=== PATIENT | female | born 1950 | race Caucasian/White ===

== ENCOUNTER 2020-02-06 | Emergency (ER) | payer MEDICARE ==
[~2020-02-06] MED LIST: BABY ASPIRIN81 MG OR; BENICAR HCT1 TA2 PO; CLOBETASOL0.051 EX; DIOVAN HC2 OR; LEXAPRO20 MG PO; LORTAB 5 OR; MELOXICAM15 MG PO; MELOXICAM7.5 MG OR; TOPROL XL50 MG PO; VITAMIN D2000 UNIT PO
[2020-02-06 13:42] LABS: HEMATOCRIT 48.6 % (37.0-47.0); IMMATURE GRANULOCYTES 1.7 % (0.0-5.0); MEAN CORPUSCULAR HGB CONC 32.9 g/dL CAL (32.0-36.0); NEUT# 5.36 thou/uL (2.00-7.15); RED BLOOD COUNT 5.34 mill/uL (4.20-5.60); RED CELL DISTRI WIDTH 13.6 % (11.5-15.5)
[2020-02-06 13:50] LABS: ALBUMIN 3.4 g/dL (3.2-5.0); ALKALINE PHOSPHATASE 106 u/l (38-126); BUN 26 mg/dL (8-23); BUN/CREATININE RATIO 33 (12-20 (CALC)); CHLORIDE 98 mmol/l (95-108); CREATININE 0.8 mg/dL (0.5-1.0); GFR > 60 ML/MIN (>=60 (CALC)); GFR FOR AFR.AMER. > 60 ML/MIN (>=60 (CALC)); POTASSIUM 3.3 mmol/l (3.5-5.1); SODIUM 136 mmol/l (137-146); TOTAL PROTEIN 7.1 g/dL (6.3-8.2)
[2020-02-06 13:52] LABS: ANION GAP 8 (6-22 (CALC)); BILIRUBIN, TOTAL 0.8 mg/dL (0.0-1.4); CARBON DIOXIDE 33 mmol/l (22-30); SGOT/AST 139 u/l (9-36)
[2020-02-06 14:13] LABS: MYOGLOBIN 39 ng/mL (0 - 62)
[2020-02-06 14:26] LABS: URINE BILIRUBIN - DIPSTICK NEGATIVE (NEGATIVE); URINE BLOOD DIPSTICK NEGATIVE (NEGATIVE); URINE COLOR YELLOW; URINE GLUCOSE - DIPSTICK NEGATIVE (NEGATIVE); URINE KETONE NEGATIVE (NEGATIVE); URINE LEUK ESTERASE NEGATIVE (NEGATIVE); URINE NITRITE - DIPSTICK NEGATIVE (Negative); URINE PH 6.5 (4.5-8.0); URINE PROTEIN - DIPSTICK 30 mg/dL (NEG-TRACE); URINE SPECIFIC GRAVITY 1.015; URINE UROBILINOGEN - DIPSTICK 0.2 E.U./dL (0.2)
[2020-02-06 14:41] LABS: URINE RBC 0-2 RBC/hpf (0-5); URINE SQUAMOUS EPITHELIAL CELL FEW EPI/hpf (0-FEW)
[2020-02-06 14:42] LABS: URINE BACTERIA FEW hpf; URINE MUCUS FEW hpf (NONE-FEW)
[2020-02-06] MEDS ORDERED: CEPHALEXIN500 M1 PO (14:56)
== END 2020-02-06 15:40 | disposition home or self-care (01) ==
PROVIDERS: Emergency Medicine
DX: E87.6 Hypokalemia (principal); R74.8 Abnormal levels of other serum enzymes; N39.0 Urinary tract infection, site not specified; I10 Essential (primary) hypertension

== ENCOUNTER 2020-03-12 15:33 | Emergency (ER) | payer MEDICARE ==
[~2020-03-12 15:33] MED LIST changes: +CEPHALEXIN500 M1 PO
[2020-03-12 16:27] LABS: MEAN CORPUSCULAR HGB 29.3 pG CALC (26.0-32.0); MEAN CORPUSCULAR HGB CONC 31.5 g/dL CAL (32.0-36.0); NEUT# 4.1 thou/uL (2.00-7.15); RED BLOOD COUNT 3.86 mill/uL (4.20-5.60); RED CELL DISTRI WIDTH 16.2 % (11.5-15.5)
[2020-03-12] MEDS ORDERED: FOLIC ACID1 MG PO (16:30)
[2020-03-12] MEDS ORDERED: ASPIRIN 81 LOW81 MG PO (16:30)
[2020-03-12] MEDS ORDERED: PROTONIX40 M4 PO (16:31)
[2020-03-12 16:33] LABS: HEMATOCRIT 35.9 % (37.0-47.0); HEMOGLOBIN 11.3 g/dl (12.0-16.0); IMMATURE GRANULOCYTES 7.3 % (0.0-5.0)
[2020-03-12 16:43] LABS: PROTHROMBIN TIME 10.7 SECONDS (9.0-12.5)
[2020-03-12] MEDS ORDERED: PANTOPRAZOLE SO40 M1 PO (16:54)
[2020-03-12] MEDS ORDERED: METHOTREXATE2.5 MG PO (16:55)
[2020-03-12] MEDS ORDERED: AMLODIPINE BESY10 MG PO (16:57)
[2020-03-12] MEDS ORDERED: ADLT ASA LOW81 MG PO (16:57)
[2020-03-12] MEDS ORDERED: VITAMIN D32000 UNI2 PO (16:58)
[2020-03-12 17:17] LABS: ALKALINE PHOSPHATASE 90 u/l (38-126); BILIRUBIN, TOTAL 0.7 mg/dL (0.0-1.4); BUN 18 mg/dL (8-23); BUN/CREATININE RATIO 26 (12-20 (CALC)); CHLORIDE 103 mmol/l (95-108); CREATININE 0.7 mg/dL (0.5-1.0); GFR > 60 ML/MIN (>=60 (CALC)); GFR FOR AFR.AMER. > 60 ML/MIN (>=60 (CALC)); POTASSIUM 3.8 mmol/l (3.5-5.1); SGOT/AST 120 u/l (9-36); SODIUM 133 mmol/l (137-146); TOTAL PROTEIN 6.3 g/dL (6.3-8.2)
[2020-03-12 17:19] LABS: ALBUMIN 2.7 g/dL (3.2-5.0); ANION GAP 8 (6-22 (CALC)); CARBON DIOXIDE 26 mmol/l (22-30)
[2020-03-12 18:18] VITALS: BP 98/56
== END 2020-03-12 18:15 | disposition home or self-care (01) ==
LOC: ED 15:33
PROVIDERS: Family Medicine
PROC: 2Y41X5Z Packing of Nasal Region using Packing Material (ICD-10-PCS; principal; 2020-03-12)
DX: R04.0 Epistaxis (principal); I10 Essential (primary) hypertension; Z79.82 Long term (current) use of aspirin

== ENCOUNTER 2020-03-13 01:47 | Emergency (ER) | payer MEDICARE ==
[~2020-03-13 01:47] MED LIST changes: +ADLT ASA LOW81 MG PO; +AMLODIPINE BESY10 MG PO; +ASPIRIN 81 LOW81 MG PO; +FOLIC ACID1 MG PO; +METHOTREXATE2.5 MG PO; +PANTOPRAZOLE SO40 M1 PO; +PROTONIX40 M4 PO; +VITAMIN D32000 UNI2 PO
[2020-03-13 02:51] LABS: HEMOGLOBIN 11.1 g/dl (12.0-16.0); MEAN CELL VOLUME 92.6 fL CALC (80.0-100.0); MEAN CORPUSCULAR HGB 30.2 pG CALC (26.0-32.0); MEAN CORPUSCULAR HGB CONC 32.6 g/dL CAL (32.0-36.0); NEUT# 3.94 thou/uL (2.00-7.15); RED BLOOD COUNT 3.67 mill/uL (4.20-5.60); RED CELL DISTRI WIDTH 16.5 % (11.5-15.5)
[2020-03-13 02:52] LABS: IMMATURE GRANULOCYTES 7.3 % (0.0-5.0)
[2020-03-13 03:02] LABS: ALBUMIN 2.7 g/dL (3.2-5.0); ALKALINE PHOSPHATASE 90 u/l (38-126); ANION GAP 9 (6-22 (CALC)); BILIRUBIN, TOTAL 0.8 mg/dL (0.0-1.4); BUN 19 mg/dL (8-23); BUN/CREATININE RATIO 29 (12-20 (CALC)); CARBON DIOXIDE 26 mmol/l (22-30); CHLORIDE 102 mmol/l (95-108); CREATININE 0.7 mg/dL (0.5-1.0); GFR > 60 ML/MIN (>=60 (CALC)); GFR FOR AFR.AMER. > 60 ML/MIN (>=60 (CALC)); POTASSIUM 3.7 mmol/l (3.5-5.1); SGOT/AST 118 u/l (9-36); SODIUM 133 mmol/l (137-146); TOTAL PROTEIN 6.2 g/dL (6.3-8.2)
[2020-03-13 03:03] LABS: PROTHROMBIN TIME 10.8 SECONDS (9.0-12.5)
[2020-03-13 03:31] LABS: MYOGLOBIN 128 ng/mL (0 - 62)
[2020-03-13 04:00] VITALS: BP 108/62
== END 2020-03-13 04:17 | disposition short-term general hospital (02) ==
LOC: ED 01:47
PROVIDERS: Emergency Medicine
DX: K92.2 Gastrointestinal hemorrhage, unspecified (principal); I95.9 Hypotension, unspecified; D50.0 Iron deficiency anemia secondary to blood loss (chronic); F41.0 Panic disorder [episodic paroxysmal anxiety]; I10 Essential (primary) hypertension
CPT/HCPCS: S0164

== ENCOUNTER 2020-04-11 15:15 | Inpatient (IN) | payer MEDICARE ==
[~2020-04-11] VITALS: Ht 160 cm; Wt 105.8 kg
--- NOTE | 2020-04-11 15:15 | NUR ---
PT TO ROOM VIA EMS
--- NOTE | 2020-04-11 15:52 | NUR ---
PT SENT TO ER BY [facility], FOR AMS AND LOW 02 SAT. PT IS AOX1 UPON ARRIVAL. PT WAS RELEASED FROM [facility] WITH A DIAGNOSIS OF PNEUMONIA AND SEPSIS. PT HAS PICC LINE IN UPPER RIGHT ARM THAT FLUSHED AND GAVE BLOOD. PT WILL ANSWER QUESTIONS ABOUT SELF WITH MOTIVATION. PT FOLLOWS BASIC COMMANDS. PT DENIES ANY C/P, SOB N/V. PT ON HOME 02 AT 3 LPM
[2020-04-11 16:02] LABS: HEMOGLOBIN 11.5 g/dl (12.0-16.0); IMMATURE GRANULOCYTES 3.5 % (0.0-5.0); MEAN CELL VOLUME 93.3 fL CALC (80.0-100.0); MEAN CORPUSCULAR HGB 29.8 pG CALC (26.0-32.0); MEAN CORPUSCULAR HGB CONC 31.9 g/dL CAL (32.0-36.0); NEUT# 6.03 thou/uL (2.00-7.15); RED BLOOD COUNT 3.86 mill/uL (4.20-5.60); RED CELL DISTRI WIDTH 18.9 % (11.5-15.5)
[2020-04-11 16:05] LABS: ANION GAP 7 (6-22 (CALC)); BILIRUBIN, TOTAL 0.6 mg/dL (0.0-1.4); BUN 12 mg/dL (8-23); BUN/CREATININE RATIO 18 (12-20 (CALC)); CARBON DIOXIDE 25 mmol/l (22-30); CHLORIDE 109 mmol/l (95-108); CREATININE 0.7 mg/dL (0.5-1.0); GFR > 60 ML/MIN (>=60 (CALC)); GFR FOR AFR.AMER. > 60 ML/MIN (>=60 (CALC)); POTASSIUM 4.2 mmol/l (3.5-5.1); SGOT/AST 105 u/l (9-36); SODIUM 137 mmol/l (137-146); TOTAL PROTEIN 5.8 g/dL (6.3-8.2)
[2020-04-11 16:16] LABS: ALBUMIN 1.9 g/dL (3.2-5.0); ALKALINE PHOSPHATASE 149 u/l (38-126)
[2020-04-11] MEDS ORDERED: ELIQUIS5 MG PO (16:16)
[2020-04-11 16:18] LABS: MYOGLOBIN 63 ng/mL (0 - 62)
[2020-04-11] MEDS ORDERED: MIRTAZAPINE15 MG PO (16:20)
[2020-04-11] MEDS ORDERED: ROCALTROL0.5 MC1 PO (16:20)
[2020-04-11] MEDS ORDERED: MIDODRINE HYDR2.5 MG (16:20)
[2020-04-11] MEDS ORDERED: SOTALOL HCL80 MG PO (16:21)
[2020-04-11] MEDS ORDERED: KLOR-CON M2020 MEQ PO (16:21)
[2020-04-11] MEDS ORDERED: SERTRALINE25 MG PO (16:21)
--- NOTE | 2020-04-11 16:22 | NUR ---
SPOKE WITH SHAWNA FROM HOME HEALTH. STATES THAT THIS MORNING THE FAMILY STATED THAT THEY COULD NOT TAKE CARE OF THE PT. SHAWNA WAS ATTEMPTING TO GET PLACEMENT AT [facility]. UPON ARRIVAL OF HOME HEALTH NURSES, NURSES FOUND PT IN POOR HEALTH CONDITIONS AND CALLED 911.
--- NOTE | 2020-04-11 17:16 | NUR ---
ROD INSERTED, PT RESTING ON STRETCHER, FAMILY AT BEDSIDE.
[2020-04-11 17:41] LABS: URINE BILIRUBIN - DIPSTICK NEGATIVE (NEGATIVE); URINE BLOOD DIPSTICK TRACE-LYSED (NEGATIVE); URINE COLOR YELLOW; URINE GLUCOSE - DIPSTICK NEGATIVE (NEGATIVE); URINE KETONE 15 mg/dL (NEGATIVE); URINE LEUK ESTERASE NEGATIVE (NEGATIVE); URINE NITRITE - DIPSTICK NEGATIVE (Negative); URINE PROTEIN - DIPSTICK 30 mg/dL (NEG-TRACE); URINE SPECIFIC GRAVITY 1.025; URINE SQUAMOUS EPITHELIAL CELL FEW EPI/hpf (0-FEW); URINE UROBILINOGEN - DIPSTICK 0.2 E.U./dL (0.2)
--- NOTE | 2020-04-11 18:16 | NUR ---
PT RESTING ON STRETCHER, NO CHANGES IN MENTAL STATUS
--- NOTE | 2020-04-11 19:35 | NUR ---
[facility] CALLED FOR REPORT, AMERICA PEREZ ACCEPTED PT
--- NOTE | 2020-04-11 19:49 | NUR ---
Admission Note Report Given to: AMERICA PEREZ Transported by: Wheelchair X Stretcher Transported with: X Nurse Transporter X Patent IV X O2 Award Machine Operator Location: ICU X [facility] TRANSPORTED WITHOUT ISSUE
--- NOTE | 2020-04-11 19:49 | NUR ---
PT ARRIVED TO FLOOR VIA STRETCHER. PT ALERT TO SELF. HESITANT TO ANSWER ANY QUESTIONS. NO APPARENT RESPIRATORY DISTRESS NOTED PT ON 3L/M VIA NC. ROD PATENT DRAINING DARK YELLOW OUTPUT. WOUNDS NOTED TO RIGHT INNER THIGH, RIGHT BUTTOCK, RIGHT SHOULDER AND RIGHT OUTER THIGH WITH SLOUGH NOTED IN ALL WOUNDS. WOUND IMAGES DOCUMENTED. ORIENTED PT TO ROOM AND CALL LIGHT SYSTEM. BED ALARM PLACED FOR SAFETY. PT PLACED IN ISOLATION DUE TO RECENT DISCHARGE FROM [facility], DRY COUGH AND LOW GRADE TEMP. MIDLINE TO CHAPIN, PRESENT UPON ADMISSION, DRESSING CDI. CALL LIGHT WITHIN REACH. WILL CONTINUE TO MONITOR.
[2020-04-11 19:50] VITALS: BP 107/76
--- NOTE | 2020-04-11 22:03 | NUR ---
PT MORE ALERT. REMAINS ORIENTED TO SELF. CERTIFIED NURSE AIDE ORIENTED TO PLACE AND TIME. MEDICATED ORDERED. PT TOOK PO MEDS WITH SMALL SIP OF WATER, TOLERATED WELL. PT DENIES ANY PAIN OR DISCOMFORT. CALL LIGHT WITHIN REACH. WILL CONTINUE TO MONITOR.
[2020-04-11 23:45] VITALS: BP 106/64
[2020-04-12] VITALS (8 sets, daily range): BP systolic 97–145; BP diastolic 43–83
--- NOTE | 2020-04-12 02:45 | NUR ---
PT RESTING IN BED. NO APPARENT DISTRESS NOTED. CALL LIGHT WITHIN REACH. WILL CONTINUE TO MONITOR.
--- NOTE | 2020-04-12 06:22 | NUR ---
PT RESTING IN BED. NO APPARENT DISTRESS NOTED. CALL LIGHT WITHIN REACH. WILL CONTINUE TO MONITOR.
--- NOTE | 2020-04-12 09:00 | NUR ---
PT SEEN RESTING IN THE BED, DID NOT ANSWER INITIALLY, BUT NOW IS INTERACTIVE. PT WITH FLAT AFFECT. LUNGS CLEAR BUT DECREASED THROUGHOUT, RA. ROD CATHETER IN PLACE. DAUGHTER MARYBETH UPDATED WHEN SHE CALLED.
--- NOTE | 2020-04-12 13:00 | NUR ---
PT SEEN BY DR PELAEZ TODAY, WAS ABLE TO ANSWER SIMPLE QUESTIONS APPROPRIATELY. PT DID SAY THAT SHE WANTED TO EAT, WHICH WAS ENCOURAGING.
[2020-04-12 13:43] LABS: ALBUMIN 1.9 g/dL (3.2-5.0); ALKALINE PHOSPHATASE 151 u/l (38-126); ANION GAP 4 (6-22 (CALC)); BILIRUBIN, TOTAL 0.5 mg/dL (0.0-1.4); BUN 14 mg/dL (8-23); BUN/CREATININE RATIO 18 (12-20 (CALC)); CARBON DIOXIDE 30 mmol/l (22-30); CHLORIDE 109 mmol/l (95-108); CREATININE 0.7 mg/dL (0.5-1.0); GFR > 60 ML/MIN (>=60 (CALC)); GFR FOR AFR.AMER. > 60 ML/MIN (>=60 (CALC)); SGOT/AST 109 u/l (9-36); SODIUM 139 mmol/l (137-146); TOTAL PROTEIN 5.7 g/dL (6.3-8.2)
--- NOTE | 2020-04-12 16:13 | NUR ---
DAUGHTER MARYBETH CONNER IS AT [phone].
--- NOTE | 2020-04-12 16:53 | NUR ---
PT REMAINS BEFORE, NO CHANGE IS STATUS SHE IS SEEN RESTING IN THE BED.
--- NOTE | 2020-04-12 21:35 | NUR ---
MD WAS NOTIFIEDN REGARDING PT HAVING V-TACH, PVC'S AND SOME ATRIGOMY OM TELEMETRY. RESIDENT IS IN BED WITH EYES OPEN. NON PRODUCTIVE COUGH NOTED. O2 SAT RUNNING 91%. HEART RATE IRREGULAR FLUCTUATING BETWEEN 90-104. MD STATES TO GIVE PRESCRIBED MEDICATIONS AND MONITOR RESIDENT HE IS AWARE OF RECENT LAB RESULTS. MEDICATIONS GIVEN AND WILL CONTINUE TO OBSERVE.
--- NOTE | 2020-04-12 23:40 | NUR ---
PATIENT ARRIVES VIA BED TO ICU BED 6. PT AWAKE, ORIENTED TO HER NAME AND ONLY. NO SOB NOTED, SATS 99-100% ON 4 L/MIN NC. LUNG SOUNDS CLEAR ANTERIOR AND POSTERIOR, HR RATE 70'S-80'S, OCCASSIONAL PVC'S, SR. BP WNL. PEDAL AND RADIAL PULSES STRONG. PT DOES FOLLOW COMMANDS. ROD CATHETER INTACT, URINE IS MATTHEW. ESCALATOR OPERATOR DOES REPORT PT HAS ONLY OUTPUT OF URINE IN THE BAG WHICH IS ABOUT 200 ML. PT DOES HAVE SCATTERED ABRASIONS, EXCORIATION THROUGH OUT BODY AND AN ULCER ON HER LEFT BUTTOCK, PICTURES IN CHART ALREADY. NO COUGH NOTED. CHAPIN MIDLINE INTACT, SALINE LOCKED. PT'S NURSE IN MED SURG RECEIVED ORDERS FROM DR DIETRICH AND FAXED TO PHARMACY. CALL LIGHT WITHIN REACH.
--- NOTE | 2020-04-12 23:47 | NUR ---
PT CONTINUES ON TELEMETRY AND HEART RATE DROPPING TO 28 AND 32 BPM AND JUMPING UP TO 70'S. PT O2 SATS FLUCTUATING IN THE 70-90'S. MD WAS NOTIFIED AND ORDER TO TRANSFER PT UP TO ICU FOR FURTHUR MONITORING. PT IS SOMEWHAT RESTLESS AT TIMES. WAS CALLED AND MADE AWARE OF TRANSFER TO ICU. ORDER NOTED FOR CALCIUM GLUCONATE 2GM X 1 DOSE. PT WAS TRANSFERRED VIA STRETCHER.
--- NOTE | 2020-04-12 23:52 | NUR ---
PATIENT'S HUSBNAD LAI AGEE CALLED HERE FOR UPDATES, HE WAS ABLE TO GIVE PASSCODE. UPDATES WERE PROVIDED.
[2020-04-13] VITALS (16 sets, daily range): BP systolic 91–193; BP diastolic 55–86
--- NOTE | 2020-04-13 04:21 | NUR ---
PT WAS REPOSITIONED, AGREED TO DRINK SOME WATER,ASSISTED BY HOLDING THE CUP, PT IS CONFUSED. REORIENTED.AFEBRILE.
[2020-04-13 05:56] LABS: HEMATOCRIT 37.4 % (37.0-47.0); HEMOGLOBIN 11.7 g/dl (12.0-16.0); IMMATURE GRANULOCYTES 2.8 % (0.0-5.0); MEAN CELL VOLUME 95.2 fL CALC (80.0-100.0); MEAN CORPUSCULAR HGB 29.8 pG CALC (26.0-32.0); MEAN CORPUSCULAR HGB CONC 31.3 g/dL CAL (32.0-36.0); NEUT# 5.82 thou/uL (2.00-7.15); RED BLOOD COUNT 3.93 mill/uL (4.20-5.60); RED CELL DISTRI WIDTH 19.4 % (11.5-15.5)
[2020-04-13 06:03] LABS: ALBUMIN 1.9 g/dL (3.2-5.0); ALKALINE PHOSPHATASE 170 u/l (38-126); ANION GAP 6 (6-22 (CALC)); BILIRUBIN, TOTAL 0.6 mg/dL (0.0-1.4); BUN 18 mg/dL (8-23); BUN/CREATININE RATIO 20 (12-20 (CALC)); CARBON DIOXIDE 29 mmol/l (22-30); CHLORIDE 109 mmol/l (95-108); CREATININE 0.9 mg/dL (0.5-1.0); GFR > 60 ML/MIN (>=60 (CALC)); GFR FOR AFR.AMER. > 60 ML/MIN (>=60 (CALC)); INTERNATIONAL NORMALIZED RATIO 2.4 RATIO (0.7-1.3); POTASSIUM 4.2 mmol/l (3.5-5.1); PROTHROMBIN TIME 24.1 SECONDS (9.0-12.5); SGOT/AST 118 u/l (9-36); SODIUM 140 mmol/l (137-146); TOTAL PROTEIN 5.7 g/dL (6.3-8.2)
[2020-04-13 07:24] LABS: TSH, 3RD GENERATION 6.42 uIU/mL (0.47 - 4.68)
--- NOTE | 2020-04-13 08:00 | NUR ---
PT SITTING UP IN BED. STAFF ASSISTING TO FEED PT BREAKFAST. PT ATE MINIMAL. WHEN ASKED PTS NAME, PT RESPONDS "I DONT KNOW". PT IS ALERT BUT CONFUSED. EYES OPENED. NSR AT 74 ON MONITOR. WILL CONTINUE TO MONITOR.
--- NOTE | 2020-04-13 10:02 | NUR ---
DR DIETRICH @BEDSIDE W/PT & DAUGHTER. DAUGHTER REQUEST TPN, DECIDED TO CHANGE PT TO REGULAR DIET TO ENCOURAGE APPETITE.
--- NOTE | 2020-04-13 11:17 | NUR ---
DAUGHTER @NURSING STATION SCARED THAT SHE IS NOT BEING AGGRESSIVE ENOUGH AN ADVOCATE FOR HER MOM. DAUGHTER THINKS MOM WILL STARVE TO IF WE DONT INTERVENE. DAUGHTER ASSURED WE HEAR HER BUT WE NEED TO GO STEP BY STEP, STARTING WITH LUNCH. AWARE.
--- NOTE | 2020-04-13 14:36 | NUR ---
PT BATHED AFTER LARGE BROWN SOFT/PASTY BM THAT WENT UP HER BACK AND DOWN TO HER KNEES. LINENS & GOWN CHANGED. MULTIPLE WOUNDS PHOTOGRAPHED (LEFT SHOULDER, POSTERIOR BILATERAL KNEES, LEFT & RIGHT LATERAL UPPER THIGHS, AND RIGHT UPPER MEDIAL THIGH). WOUNDS CLEANED & BANDAGED.
--- NOTE | 2020-04-13 17:09 | NUR ---
DAUGHTER RETURNS TO ROOM TO ASSIST FEED PT FOR DINNER. DAUGHTER HAPPY PT DRANK WHOLE ENSURE CLEAR FOR LUNCH; BROUGHT IN FOOD FROM OUTSIDE. DAUGHTER ACKNOWLEDGES [facility] IS DOING EVERYTHING THEY CAN FOR PT. DAUGHTER APPRECIATIVE OF CARE & HAPPY WHEN INFORMED OF PTS BM.
--- NOTE | 2020-04-13 18:36 | NUR ---
DAUGHTER STILL CONCERNED ABOUT PTS LOSS OF APPETITE; SHE ONLY GOT HER TO DRINK DINNER, PT DID NOT DRINK.
--- NOTE | 2020-04-13 19:20 | NUR ---
PATIENT LAYS WITH HOB NEAR 30 DEGREES. PT IS DROWSY, DOES NOT FOLLOW COMMANDS THOROUGHLY, GUARDS HERSELF WHEN ATTEMPTING TO PERFORM NURSING CARE. NURSING ASSESSMENT PERFORMED. AFEBRILE, BP WNL, SATS GREATER THAN 95% ON 2 L/MIN., NO SOB NOTED. ROD CATHETER INTACT, DRAINS TEA COLORED URINE. CHAPIN MIDLINE INTACT, FLUSHES PROPERLY, RETURNS BLOOD. COTTON TIPPER COUGH NOTED. CALL LIGHT WITHIN REACH.
--- NOTE | 2020-04-13 21:30 | NUR ---
pt repositioned, washed up due to large incontinent bm, loose. pt guarded. states, "why don't you leave me alone." all linens changed. pillow placed on right side. hob greater than 30 degrees. attempted to give her ensure or ornage juice that her daughter brouth her today, pt refuses at this time. will not swallow her meds for tonight, shakes her head from side to side, states, "no." will attempt when she calms down.
--- NOTE | 2020-04-13 22:45 | NUR ---
WALKED INTO ROOM, 2 STAFF NURSES ASSISTED PT WITH AN INCONTINENT BM, WASHER HER PERIAREA. PT NOW LAYS WITH HOB NEAR 30 DEGREES. CALL LIGHT WITHIN REACH.
[2020-04-14] VITALS (11 sets, daily range): BP systolic 80–132; BP diastolic 45–76
--- NOTE | 2020-04-14 00:25 | NUR ---
ATTEMPTED TO GIVE PATIENT SOME ICED WATER, PT REFUSES, AND SHAKES HER HEAD. REFUSES ALL MEDS.
--- NOTE | 2020-04-14 01:34 | NUR ---
PT SCOOTS DOWN ON THE BED, PT REPOSITIONED, WHEN ASKED IF SHE IS COLD SHE ANSWERS, "YES." BLANKET PROVIDED. CALL LIGHT WITHIN REACH.
[2020-04-14 05:41] LABS: ALBUMIN 1.9 g/dL (3.2-5.0); BILIRUBIN, TOTAL 0.5 mg/dL (0.0-1.4); CREATININE 1.1 mg/dL (0.5-1.0); POTASSIUM 3.7 mmol/l (3.5-5.1); TOTAL PROTEIN 5.7 g/dL (6.3-8.2)
[2020-04-14 05:42] LABS: HEMATOCRIT 36.1 % (37.0-47.0); HEMOGLOBIN 11.5 g/dl (12.0-16.0); IMMATURE GRANULOCYTES 3.8 % (0.0-5.0); MEAN CELL VOLUME 92.6 fL CALC (80.0-100.0); MEAN CORPUSCULAR HGB 29.5 pG CALC (26.0-32.0); MEAN CORPUSCULAR HGB CONC 31.9 g/dL CAL (32.0-36.0); NEUT# 4.75 thou/uL (2.00-7.15); RED BLOOD COUNT 3.9 mill/uL (4.20-5.60); RED CELL DISTRI WIDTH 19.5 % (11.5-15.5)
--- NOTE | 2020-04-14 05:51 | NUR ---
PT WAS REPOSITIONED. NO INCONTINENCE OF BM NOTED AT THIS TIME. PT ENCOURAGED TO DRINK WATER, REFUSES.
--- NOTE | 2020-04-14 06:11 | NUR ---
CALLED AND SPOKE TO DR DIETRICH TO NOTIFY OF 150 ML OUTPUT OF URINE FROM HER ROD CATHETER TONIGHT, ALSO NOTIFIED HIM OF PATIENT REFUSING TO DRINK FLUIDS. NEW ORDERS RECEIVED AND FAXED TO PHARMACY .
--- NOTE | 2020-04-14 06:55 | NUR ---
REPORT RECEIVED FROM NATALIE PARNELL. CARE ASSUMED.
--- NOTE | 2020-04-14 07:00 | NUR ---
PT RESTING IN BED WITH EYES CLOSED. AROUSES TO TOUCH. WHEN ASKED NAME PT STATES JUST LET ME GO. PT REFUSED TO STATE NAME, , LOCATION, OR YEAR. UNABLE TO ASSESS ORIENTATION. SHIFT ASSESSMENT COMPLETED AT THIS TIME. PT REPOSITIONED IN BED. CALL LIGHT IN REACH. WILL CONTINUE TO MONITOR.
--- NOTE | 2020-04-14 07:40 | NUR ---
PT SET UP FOR AM MEAL. PT REFUSING TO EAT. DAUGHTER AT BEDSIDE/ DAUGHTER MADE AWARE.
--- NOTE | 2020-04-14 08:15 | NUR ---
DR PELAEZ AT BEDSIDE AT THIS TIME
--- NOTE | 2020-04-14 09:00 | NUR ---
PT ASSISTED UP TO CHAIR UP AT BEDSIDE. INCONTINENT OF STOOL. PT CLEANSED LINENS CHANGED
--- NOTE | 2020-04-14 10:02 | NUR ---
PT SITTING UP IN RECLINER AT BEDSIDE. RESP ARE EVEN AND UNLABORED. NO DISTRESS NOTED. CALL LIGHT IN REACH. WILL CONTINUE TO MONITOR.
--- NOTE | 2020-04-14 11:00 | NUR ---
PT ASSISTED FROM CHAIR BACK TO BED. PT REFUSING TO GIVE ANY ASSISTANCE. PT YELLING JUST LET ME . PT THEN SLID FEET. STAFF SET PT ON FLOOR AT THIS TIME. STAFF X3 ATTEMPTED TO ASSIT PATIENT BACK TO CHAIR PT REFUSED THEN LAYED ON FLOOR STATING AGAIN JUST LET ME . CALLED FOR A LIFT ASSIST. STAFF X5 MAX ASSIST TO GET PATIENT BACK TO BED. PT CONTINUES TO YELL JUST LEAVE ME ALONE. DR PELAEZ AT BEDSIDE AT THIS TIME WELL. VS REMAIN STABLE. CALL LIGHT IN REACH. WILL CONTINUE TO MONITOR.
--- NOTE | 2020-04-14 12:00 | NUR ---
PT RESTING IN BED WITH EYES CLOSED. PT CONTINUES TO REFUSE FOOD AT THIS TIME. SR ON MONITOR WITH PVCS. CALL LIGHT IN REACH. WILL CONTINUE TO CLOSELY MONITOR.
--- NOTE | 2020-04-14 12:49 | NUR ---
BP 80/61. DR PELAEZ NOTIFIED. PT CONTINUES TO REFUSE TO TAKE PO MEDICATIONS
[2020-04-14 14:45] LABS: CHOLESTEROL HDL RATIO 6.2 (<4.4 (CALC))
--- NOTE | 2020-04-14 16:00 | NUR ---
DAUGHTER AT BEDSIDE AT THIS TIME. PT STARTED ON TPN AND LIPIDS AT THIS TIME PER PHARMACY DOSING. VSS ON MONITOR. CALL LIGHT IN REACH. WILL CONTINUE TO CLOSELY MONITOR.
--- NOTE | 2020-04-14 19:45 | NUR ---
eyes closed. does not fully arouse. o2 cont per nc. pvc monitor shows sinus rhythm pacs pvcs hr 97. midline in place dustin. tpn infusing @ 84cchr lipids infusing @ 30cchr. refused po intake. turner cath in place. urine cloudy yellow. several bruises, abrasions about body. see pics. requires total care for all needs. fall precautions cont.
--- NOTE | 2020-04-14 20:00 | NUR ---
The patient is screened for rehab needs. She could benefit from ST and PT intervention is medical agrees
--- NOTE | 2020-04-14 22:00 | NUR ---
eyes closed. no distress. ekg monitor tech shows sinus rhythm pacs pvcs hr 92.
[2020-04-15] VITALS (11 sets, daily range): BP systolic 107–137; BP diastolic 56–84
--- NOTE | 2020-04-15 00:01 | NUR ---
eyes closed. no apparent distress. engine monitor shows sinus rhythm pacs pvcs hr 88.
--- NOTE | 2020-04-15 02:00 | NUR ---
reting quietly. resps even & unlabored. no apparent distress.
--- NOTE | 2020-04-15 04:45 | NUR ---
bath given & linen changed x2 assists. pt uncooperative with care.
--- NOTE | 2020-04-15 06:45 | NUR ---
REPORT RCEIVED FROM [place] PEREZ [facility] ASSUMED
--- NOTE | 2020-04-15 07:00 | NUR ---
PT RESTING IN BED WITH EYES CLOSED. PT SROUSES TO TOUCH. PT IS ABLE TO STATE FIRST AND LAST NAME. PT REFUSES TO STATE . PT CLOSES EYES WHEN ASKED YEAR AND PLACE. SHIFT ASSESSMENT COMPLETED AT THIS TIME. IV PATENT X1. CALL LIGHT IN REACH. BED ALARM SET FOR PT SAFETY. WILL CONTINUE TO CLOSELY MONITOR.
--- NOTE | 2020-04-15 07:27 | NUR ---
LAB AT BEDSIDE AT THIS TIME TO DRAW AM LABS
--- NOTE | 2020-04-15 07:40 | NUR ---
PT OFFERRED BREAKFAST TRAY. PT REFUSED.
[2020-04-15 07:56] LABS: BILIRUBIN, TOTAL 0.5 mg/dL (0.0-1.4); CREATININE 1.1 mg/dL (0.5-1.0); POTASSIUM 4.1 mmol/l (3.5-5.1); TOTAL PROTEIN 5.9 g/dL (6.3-8.2)
--- NOTE | 2020-04-15 08:10 | NUR ---
DR PELAEZ AT BEDSIDE AT THIS TIME
--- NOTE | 2020-04-15 09:39 | NUR ---
ANKUR RUEDA PHONED FOR UPDATE. UPDATE PROVIDED.
--- NOTE | 2020-04-15 10:00 | NUR ---
PT RESTING IN BED WITH EYES CLOSED. RESP ARE EVEN AND UNLABORED. NO DISTRESS NOTED. CALL LIGHT IN REACH. BED ALARM IN PLACE. WILL CONTINUE TO MONITOR
--- NOTE | 2020-04-15 11:30 | NUR ---
PT OFFERRED LUNCH TRAY PT REFUSED.
--- NOTE | 2020-04-15 11:41 | NUR ---
Patient was asleep. PT woke patient up several times, however, patient was combative and uncooperative. This PT asked the RN what time is the patient usually more alert and reported that patient is combative. RN said patient has been sleeping all day, refusing to drink water and medications, uncooperative, and combative. RN helped this PT to wake patient to have her cooperate with PT evaluation, patient again was combative and verbalized that she does not want to have PT today. PT evaluation will be done this PM or tomorrow.
--- NOTE | 2020-04-15 12:00 | NUR ---
PT RESTING IN BED WITH EYES CLOSED. RESP ARE EVEN AND UNLABORED. VSS ON MONITOR. CALL LIGHT IN REACH. WILL CONTINUE TO MONITOR.
--- NOTE | 2020-04-15 14:00 | NUR ---
PT TRASFERRED TO AIR MATTRESS AT THIS TIME. PT CLEANSED OF SMALL LIQUID BM WELL. PT CLEANSED AT THIS TIME. ROD CARE PROVIDED. CALL LIGHT IN REACH. WILL CONTINUE TO MONITOR.
--- NOTE | 2020-04-15 16:09 | NUR ---
PT RESTING IN BED WITH EYES CLOSED. RESP ARE EVEN AND UNLABORED. NO DISTRESS NOTED. VSS ON MONITOR. CALL LIGHT IN REACH. WILL CONTINUE TO MONITOR
--- NOTE | 2020-04-15 16:45 | NUR ---
DAUGHTER AT BEDSIDE AT THIS TIME. DAUGHTER DISCUSSING PLAN OF CARE AND PROGNOSIS. EXPLAINED THAT PATIENT HAD BEEN COMBATIVE AND NOT WANTING ANYTHING DONE. THAT EVERYTIME STAFF TRIES TO TURN OR WASH PATIENT OR PHYSICAL THERAPY TREIS TO DO ANYTHING IN THE ROOM. PT CONSISTENTLY STATES JUST LET ME . DAUGHTER STATES THAT SHE WILL DISCUSS WITH FAMILY A PLAN TO WHAT THEY WANT TO DO
--- NOTE | 2020-04-15 18:00 | NUR ---
PT OFFERRED PM MEAL. PT REFUSED. PT RESTING IN BED. RESP ARE EVEN AND UNLABORED. NO DISTRESS NTOED. CALL LIGHT IN REACH. WILL CONTINUE TO MONITOR.
--- NOTE | 2020-04-15 19:15 | NUR ---
eyes open when spoken to. does not follow commands. uncooperative with care. o2 cont per nc. monitoring coordinator shows sinus tach pvcs pacs hr 114. midline in place dustin. ppn infusing @ 126cchr. refuses po intake. turner cath in place. urine cloudy yellow. bruises, abrasions cont. see pics. air mattress cont. requires total care for all needs. fall precautions cont.
--- NOTE | 2020-04-15 22:00 | NUR ---
eyes closed. nad. o2 cont. turner draining well.
[2020-04-16] VITALS (11 sets, daily range): BP systolic 95–138; BP diastolic 54–93
--- NOTE | 2020-04-16 00:01 | NUR ---
eyes closed. nad. laboratory monitor shows sinus tach pacs pvcs hr 100.
--- NOTE | 2020-04-16 02:00 | NUR ---
resting quietly. resps even & unlabored. quality assurance monitor body shows sinus rhythm pacs pvcs hr 98.
--- NOTE | 2020-04-16 03:49 | NUR ---
eyes closed. no distress. air mattress conts.
--- NOTE | 2020-04-16 04:45 | NUR ---
lab here. blood drawn.
[2020-04-16 05:25] LABS: ALBUMIN 1.7 g/dL (3.2-5.0); ALKALINE PHOSPHATASE 157 u/l (38-126); ANION GAP 5 (6-22 (CALC)); BILIRUBIN, TOTAL 0.4 mg/dL (0.0-1.4); BUN 37 mg/dL (8-23); BUN/CREATININE RATIO 40 (12-20 (CALC)); CARBON DIOXIDE 24 mmol/l (22-30); CHLORIDE 111 mmol/l (95-108); CREATININE 0.9 mg/dL (0.5-1.0); GFR > 60 ML/MIN (>=60 (CALC)); GFR FOR AFR.AMER. > 60 ML/MIN (>=60 (CALC)); MAGNESIUM 2.3 mg/dL (1.6-2.3); POTASSIUM 4.2 mmol/l (3.5-5.1); SGOT/AST 98 u/l (9-36); SODIUM 136 mmol/l (137-146); TOTAL PROTEIN 5.3 g/dL (6.3-8.2)
--- NOTE | 2020-04-16 07:30 | NUR ---
@BEDSIDE FOR AM ASSESSMENT. PT GRUNTS WHEN TOUCHED. EYES CLOSED. PT MOVES AROUND IN BED. PPN RUNNING. CURTAINS/DOOR OPEN FOR CLOSER OBSERVATION.
--- NOTE | 2020-04-16 10:06 | NUR ---
DAUGHTER TRICKING PT TO TAKE PO MEDS. PT STATES HER THROAT HURTS, DAUGHTER STATES THE JELLO WILL HELP HER THROAT- PILLS HIDDEN IN JELLO. PT REFUSING TO ANSWER QUESTIONS FROM RN. PT PICKS & CHOOSES WHEN TO ANSWER QUESTIONS.
--- NOTE | 2020-04-16 10:43 | NUR ---
PHYSICAL THERAPY @BEDSIDE WITH PT.
--- NOTE | 2020-04-16 11:11 | NUR ---
PHYSICAL THERAPIST REPEATEDLY TRIES TO GET PT UP TO RECLINER. THIS RN VOICED CONCERNS ABOUT PTS MENTATION & RECLINER. PT HAD A BM WHILE PHYSICAL THERAPIST TRIED TO GET PT UP TO RECLINER. PT REPEATEDLY THROWING HERSELF BACK ON BED. PT STATING SHE "DOES NOT LIKE THIS", "LEAVE ME ALONE". PHYSICAL THERAPIST CONCERNED OVER SOILED BED, REASURED HER WE WILL CLEAN PT UP SOON SHE IS DONE. NEW LINENS & BATH SUPPLIES PLACED AT BEDSIDE.
--- NOTE | 2020-04-16 12:01 | NUR ---
PT GIVEN COMPLETE BEDBATH W/LINEN & GOWN CHANGE. FLOOR, BED, & EQUIPMENT BLEACHED FROM BM. PT HAVING 3+ CONTINUOS WATERY DARK BROWN BM WHILE CLEANING PT. PT AGITATED & AGGRESSIVE WITH STAFF.
--- NOTE | 2020-04-16 12:05 | NUR ---
DRESSINGS APPLIED TO BILATERAL LATERAL UPPER THIGH WOUNDS & MEDIAL RIGHT UPPER THIGH WOUND.
--- NOTE | 2020-04-16 13:24 | NUR ---
PT SLEEPING IN BED; SNORING. CALM. VSS. WILL CONTINUE TO MONITOR.
--- NOTE | 2020-04-16 15:15 | NUR ---
PT MOVING AROUND BED, OCCASSIONAL DRY COUGH HEARD. PT FOLLOWS STAFF WITH EYES BUT DOESNT ANSWER QUESTIONS OR GIVES IRRELEVANT ANSWERS. WILL CONTINUE TO MONITOR.
--- NOTE | 2020-04-16 17:51 | NUR ---
PT READJUSTED IN BED, SITTING UP WITH DINNER ON BEDSIDE TABLE OVER HER LAP. PT REFUSING FOOD & LIQUIDS. PT AGGRESSIVE DURING ACCUCHECK. PT "WANTS TO BE LEFT ALONE".
--- NOTE | 2020-04-16 20:00 | NUR ---
PATIENT RESTING IN BED EYES CLOSED. OPENS EYES WHEN DOING ASSESSMENT. SHIFT ASSESSMENT COMPLETE. NO DISTRESS NOTED. RESPIRATIONS EVEN AND UNLABORED. SPEACH GARBLED. ATTEMPTED TO REPOSITION PATIENT IN BED, PATIENT REFUSED. FOLY PATIENT, DARK YELLOW URINE. PPN INFUSING. WILL CONTINUE TO MONITOR.
--- NOTE | 2020-04-16 22:09 | NUR ---
PATIENT RESTING IN BED, EYES CLOSED. NO DISTRESS NOTED. RESPIRATIONS EVEN AND UNLABORED. CONTINUE TO MONITOR.
[2020-04-17] VITALS (15 sets, daily range): BP systolic 95–137; BP diastolic 55–74
--- NOTE | 2020-04-17 00:36 | NUR ---
PATIENT RESTING IN BED, EYES CLOSED. NO DISTRESS NOTED. DEMETRIUS ASSISTED CHANGING AND REPOSTIONING PATIENT. PATIENT WAS AGGRIVATED WHILE GETTING CLEANED UP AND RESISTED HAVING ACCU CHECK COMPLETED AND THEN QUICKLY CALMED DOWN WHEN FINISHED. WILL CONTINUE TO MONITOR.
--- NOTE | 2020-04-17 02:24 | NUR ---
PATIENT SLEEPING. RESP EVEN AND UNLABORED. NO DISTRESS NOTED. WILL CONTINUE TO MONITOR.
--- NOTE | 2020-04-17 04:42 | NUR ---
PATIENT RESTING IN BED, EYES CLOSED. NON PRODUCTIVE COUGH. NO DISTRESS NOTED. CONTINUE TO MONITOR.
--- NOTE | 2020-04-17 06:37 | NUR ---
ACCUR CHECK COMPLETE. PATIENT AGGRESSIVE WHEN TRYING TO PERFORM ACCUR CHECK. BS 121.
--- NOTE | 2020-04-17 07:22 | NUR ---
@BEDSIDE FOR AM ASSESSMENT. LUNGS CLEAR ON LEFT, DIMINISHED ON RIGHT. PT HAS OCCASSIONAL DRY COUGH. UNABLE TO GET A GOOD ASSESSMENT BC PT REPEATEDLY SWATS AWAY THIS RN WHENEVER TOUCHED. PT YELLS "OUCH" & "DONT TOUCH ME". AFEBRILE. TRIGEMINY ON STONEMASON. ON 2L NC.
--- NOTE | 2020-04-17 08:22 | NUR ---
PT REFUSING BREAKFAST. STAFF AT BEDSIDE TRYING TO FEED PT/COAX TO DRINK.
--- NOTE | 2020-04-17 08:53 | NUR ---
DR PELAEZ @BEDSIDE FOR ASSESSMENT. PT A&Ox0
--- NOTE | 2020-04-17 09:03 | NUR ---
LAB @BEDSIDE FOR DRAW
[2020-04-17 09:50] LABS: ALBUMIN 1.7 g/dL (3.2-5.0); ALKALINE PHOSPHATASE 144 u/l (38-126); ANION GAP 7 (6-22 (CALC)); BILIRUBIN, TOTAL 0.4 mg/dL (0.0-1.4); BUN 41 mg/dL (8-23); BUN/CREATININE RATIO 52 (12-20 (CALC)); CARBON DIOXIDE 22 mmol/l (22-30); CHLORIDE 109 mmol/l (95-108); CREATININE 0.8 mg/dL (0.5-1.0); GFR > 60 ML/MIN (>=60 (CALC)); GFR FOR AFR.AMER. > 60 ML/MIN (>=60 (CALC)); MAGNESIUM 2.4 mg/dL (1.6-2.3); POTASSIUM 4.6 mmol/l (3.5-5.1); SGOT/AST 111 u/l (9-36); SODIUM 134 mmol/l (137-146); TOTAL PROTEIN 5.1 g/dL (6.3-8.2)
--- NOTE | 2020-04-17 10:24 | NUR ---
patient was uncooperative and refused therapy
--- NOTE | 2020-04-17 10:42 | NUR ---
PT SLEEPING IN BED, CROCKED. DOES NOT WANT TO BE MOVED OR TOUCHED. SNORING. NO S/S OF DISTRESS. WILL CONTINUE TO MONITOR.
--- NOTE | 2020-04-17 11:41 | NUR ---
DAUGHTER @BEDSIDE, UPDATED ON POC & NEW MEDICATIONS. DAUGHTER WILL TRY TO COME BACK TOMORROW AM TO HELP WITH AM MED PASS.
--- NOTE | 2020-04-17 11:45 | NUR ---
DISCUSSED D/C OPTIONS WITH ALYSE MÁRQUEZ CM. SHE WILL FOLLOW UP WITH PEDRO & PTS DAUGHTER.
--- NOTE | 2020-04-17 14:44 | NUR ---
PPN DOSAGE CHANGED TO 84ML/HR PER PHARMACY.
--- NOTE | 2020-04-17 16:27 | NUR ---
PT WOKEN UP, SAT UP IN BED, OFFERED DRINK/FOOD. PT REFUSED. PT RETURNED TO SLEEP.
--- NOTE | 2020-04-17 18:22 | NUR ---
PT CLEANED & CHANGED OF LARGE LOOSE DARK BROWN STOOL. PARTIAL LINEN CHANGE. PT FOUGHT STAFF ENTIRE TIME. PUSHING AGAINST RAILS, TRYING TO GRAB, SCRATCH, HIT STAFF. PT YELLING THAT WE "ARE HURTING HER". CATH ROD EMPTIED OF CLOUDY DARK YELLOW URINE. PT RE[POSITION UPRIGHT IN BED, ALTHOUGH BED IMMEDIATLY SLUMPS TO LEFT SIDE. NC REPLACED.
--- NOTE | 2020-04-17 18:45 | NUR ---
RECEIVED REPORT FROM PEDRO PARNELL.
--- NOTE | 2020-04-17 19:15 | NUR ---
PT SLEEPING, PPN INFUSING. VITALS PER MONITOR.
--- NOTE | 2020-04-17 21:00 | NUR ---
PT RESPONDS TO VERBAL STIMULI. PT WITH ERRATIC ARM MOVEMENT IN BED. PT UNCOOPERATIVE AND ANXIOUS WITH ASSESSMENT. PPN INFUSING TO R UPPER ARM PICC LINE. ROD WITH YELLOW URINE.
[2020-04-18] VITALS: BP 109/61
--- NOTE | 2020-04-18 01:15 | NUR ---
PT RELATED PAIN WHEN TRYING TO TURN.
--- NOTE | 2020-04-18 02:00 | NUR ---
TPN FINISHED, D10W AT 84ML/HR INFUSING UNTIL NEW BAG IS DELIVERED.
[2020-04-18 05:00] VITALS: BP 159/78
--- NOTE | 2020-04-18 05:07 | NUR ---
PT BUTTOCKS, PERINEAL AREA CLEANED. BUTTOCKS RED, BARRIER CREAM APPLIED.
[2020-04-18 06:31] LABS: ALBUMIN 1.8 g/dL (3.2-5.0); ALKALINE PHOSPHATASE 151 u/l (38-126); BILIRUBIN, TOTAL 0.3 mg/dL (0.0-1.4); BUN 34 mg/dL (8-23); BUN/CREATININE RATIO 42 (12-20 (CALC)); CHLORIDE 107 mmol/l (95-108); CREATININE 0.8 mg/dL (0.5-1.0); GFR > 60 ML/MIN (>=60 (CALC)); GFR FOR AFR.AMER. > 60 ML/MIN (>=60 (CALC)); POTASSIUM 4.3 mmol/l (3.5-5.1); SGOT/AST 117 u/l (9-36); SODIUM 134 mmol/l (137-146); TOTAL PROTEIN 5.2 g/dL (6.3-8.2)
[2020-04-18 06:40] LABS: ANION GAP 4 (6-22 (CALC)); CARBON DIOXIDE 27 mmol/l (22-30)
[2020-04-18 07:00] VITALS: BP 121/74
--- NOTE | 2020-04-18 07:20 | NUR ---
PT RESTING IN BED AWAKE. PT REPOSITIONED. PT IS ALERT AND ORIENTED TO SELF ONLY. REORIENTED PT AT THIS TIME. SHIFT ASSESSMENT COMPLETED AT THIS TIME. IV PATENT X1. CALL LIGHT IN REACH. WILL CONTINUE TO MONITOR
--- NOTE | 2020-04-18 07:45 | NUR ---
REPORT RECEIVED FROM ALICIA PARNELL. CARE ASSUMED AT THIS TIME.
--- NOTE | 2020-04-18 07:54 | NUR ---
DAUGHTER AT BEDSIDE AT THIS TIME.
--- NOTE | 2020-04-18 08:15 | NUR ---
DAUGHTER ABLE TO GET PT TO MAKE MEDS WITH JACQUELINE.
--- NOTE | 2020-04-18 09:00 | NUR ---
DR PELAEZ AT BEDSIDE AT THIS TIME. PLAN OF CARE DISCUSSED WITH DAUGHTER.
--- NOTE | 2020-04-18 09:10 | NUR ---
CHANGED BID MEDS TO 0800 AND 1830, PT WILL TAKE MEDS WHEN DAUGHTER PRESENT, BUT REFUSES AND IS COMBATIVE FOR NURSES AT 0900 AND 2100 WHEN DAUGHTER IS NOT THERE.
--- NOTE | 2020-04-18 10:00 | NUR ---
PT RESTING IN BED AWAKE AND WATCHING TV. RESP ARE EVEN AND UNLABORED AT THIS TIME. VSS ON MONITOR. CALL LIGHT IN REACH. WILL CONTINUE TO MONITOR
--- NOTE | 2020-04-18 10:45 | NUR ---
REPORT CALLED TO ALYSE PEREZ ON MED SURG.
--- NOTE | 2020-04-18 11:45 | NUR ---
PT TRANSFERRED TO MED SURG ROOM 279 VIA BED ACCOMPANIED BY THIS NURSE. PT TOLERATED TRANSFER WELL. DAUGHTER NOTIFIED.
--- NOTE | 2020-04-18 11:50 | NUR ---
PT TRANSFERRED OVER BY BED WITH STAFF
--- NOTE | 2020-04-18 12:00 | NUR ---
PT CAME OVER BY BED. WITH NO DISTRESS NOTED. IV SITE IS FREE FROM REDNESS OR EDEMA. CONTINUE TO OBSERVE AND MONITOR. ROD DRAINING YELLOW URINE. TELE MONITOR PLACED ON PT.
[2020-04-18 12:03] VITALS: BP 106/72
--- NOTE | 2020-04-18 12:29 | NUR ---
ER CALLS RE: HRT RATE OF 36 WITH TELE MONITOR . INFORMED DR PELAEZ AND RAHUL BRYANT. REQUESTED STRIPS.
[2020-04-18 15:00] VITALS: BP 105/61
--- NOTE | 2020-04-18 16:30 | NUR ---
PT HAS BEEN REPOSITIONED. IN BED WITH NO DISTRESS NOTED. IV SITE IS FREE FROM REDNESS OR EDEMA.
--- NOTE | 2020-04-18 18:03 | NUR ---
PT HAD A LARGE WATERY DARK STOOL. AND INCONTINENT. SHEETS CHANGED AND CREAM APPLIED. PT NOT WANTING ANYONE TO TOUCH HER. MESSING WITH HER IV ENCOURAGED TO NOT TOUCH THE IV. TELE MONITOR IN PLACE. CONTINUE TO OBSERVE AND MONITOR.
[2020-04-18 19:00] VITALS: BP 129/76
--- NOTE | 2020-04-18 20:05 | NUR ---
PT IN BED ASLEEP, NO S/O DISTRESS. WILL FOLLOW-UP W/ASSESSMENT AND MEDICATIONS ORDERED.
--- NOTE | 2020-04-18 22:30 | NUR ---
ASSESSMENT AND LIPID INFUSION COMPLETED AT THIS TIME. PT IS ATTEMPTING TO TALK TO ME, BUT IT IS INAUDIBLE. PT PNP ARE EQUAL AND STRONG AND PT MOVING BILAT HANDS AND FEET. BED ALARM IS ON FOR SAFETY MEASURES.
[2020-04-19 00:05] VITALS: BP 128/72
--- NOTE | 2020-04-19 00:45 | NUR ---
ACCU-CHECK 104 NO S/O DISTRESS NOTED. V/S ASSESSED. PT WAS PULLING AWAY AND MUTTERING INAUDIBLE WORDS. ROD CATH DRAINING TO GRAVITY.
--- NOTE | 2020-04-19 01:50 | NUR ---
PT CLEANED OF INCONTINENT URINE AND STOOL. TPN RUNNING @84MLS/HR. PT TOLERATED WELL, BUT SHOWED CONFUSION TO CIRCUMSTANCE.
--- NOTE | 2020-04-19 03:26 | NUR ---
NEW BAG OF TPN/PPN STARTED AT THIS TIME. PT IS AWAKE, LIGHTS OUT AND TV ON. PT IS A LITTLE RESTLESS, ATTEMPTED TO MAKE HER MORE COMFORTABLE BY REPOSITIONING. WILL CONTINUE TO MONITOR. PT APPEARS CONFUSED. AND SPEECH IS GARBLED.
[2020-04-19 04:35] VITALS: BP 109/69
--- NOTE | 2020-04-19 04:45 | NUR ---
PT PROVIDED BEDBATH AND CLEANED OF INCONTINENT URINE AND LIQUID GREEN STOOL. ROD CATH DRAINING TO GRAVITY. ATTEMPTED TO UPDATE PICTURES, BUT CAMERA BATTERY WAS . WILL NOTIFY DAY NURSE OF NEED FOR PICTURE UPDATES.
--- NOTE | 2020-04-19 05:00 | NUR ---
ED CALLED TO REPORT 8 BEAT RUN OF V-TACH. V/S ASSESSED, NO S/O DISTRESS AT THIS TIME. 02 SAT LEVELS 88-90% ON 2.5LNC OXYGEN LEVEL ELEVATED TO 3L WILL MONITOR SAT LEVELS APPROPRIATELY.
[2020-04-19 07:55] VITALS: BP 115/80
--- NOTE | 2020-04-19 07:55 | NUR ---
ASSESSMENT IS COMPLETED: IV SITE IS FREE FROM REDNESS OR EDEMA. HR IS REG, PULSES ARE STRONG X4, ABD IS SOFT WITH ACTIVE BS. BREATH SOUNDS ARE CLEAR, BILATERALLY. TELE MONITOR IN PLACE. ROD DRAINING YELLOW URINE. AIR MATTRESS IN PLACE.
[2020-04-19 09:42] LABS: ALBUMIN 2.1 g/dL (3.2-5.0); ALKALINE PHOSPHATASE 196 u/l (38-126); ANION GAP 6 (6-22 (CALC)); BILIRUBIN, TOTAL 0.4 mg/dL (0.0-1.4); BUN 27 mg/dL (8-23); BUN/CREATININE RATIO 34 (12-20 (CALC)); CARBON DIOXIDE 26 mmol/l (22-30); CHLORIDE 107 mmol/l (95-108); CREATININE 0.8 mg/dL (0.5-1.0); GFR > 60 ML/MIN (>=60 (CALC)); GFR FOR AFR.AMER. > 60 ML/MIN (>=60 (CALC)); POTASSIUM 4.7 mmol/l (3.5-5.1); SGOT/AST 152 u/l (9-36); SODIUM 134 mmol/l (137-146); TOTAL PROTEIN 5.8 g/dL (6.3-8.2)
[2020-04-19 12:05] VITALS: BP 122/59
--- NOTE | 2020-04-19 12:30 | NUR ---
PT IS LAYING SIDE WAYS IN THE BED ATTEMPTED TO READJUST PT STATED" I AM COMFORTABLE.
[2020-04-19 15:10] VITALS: BP 113/42
--- NOTE | 2020-04-19 16:12 | NUR ---
REPORT RECEIVED FROM ALYSE PEREZ, PT RESTING IN BED, ALERT TO SELF, TPN INFUSING TO MIDLINE IN [place]. NO SIGNS OF DISTRESS NOTED, RESP EVEN AND UNLABORED. CALL LIGHT IN REACH,CONTINUE TO MONITOR.
--- NOTE | 2020-04-19 19:05 | NUR ---
REPORT FROM MOE PEREZ. PT RESTING IN BED. ALERT AND CONFUSED. PT WILL NOT ANSWER ANY QUESTIONS FROM DATA COLLECTION INTERVIEWER. NO APPARENT DISTRESS NOTED. AUTO BODY REPAIR ESTIMATOR IN PLACE. IV SITE APPEARS HEALTHY WITH TPN INFUSING. ROD PATENT DRAINING TO GRAVITY. AIR MATTRESS IN PLACE. ATTEMPTED TO DISCUSS POC, WILL REINFORCE NEEDED. CALL LIGHT WITHIN REACH AND BED ALARM ON FOR SAFETY. WILL CONTINUE TO MONITOR.
[2020-04-19 20:15] VITALS: BP 122/51
--- NOTE | 2020-04-19 20:36 | NUR ---
PT MOANING LOUDLY IN BED AND ATTEMPTING TO REPOSITION SELF. REPOSITIONED BY STAFF. PT APPEARS TO BE IN PAIN, WITH FACIAL GRIMACING. TPN STOP, LINE FLUSHED AND IV MORPHINE ADMININSTERED, LINE FLUSHED AND TPN RESTARTED. PT TOLERATED WELL. WILL CONTINUE TO MONITOR.
--- NOTE | 2020-04-19 23:42 | NUR ---
PT CONTINUES TO MOAN AND BE RESTLESS IN BED. ATTEMPTED TO REPOSITION, PT COMBATIVE. WILL TRY AGAIN WHEN PT CALMS DOWN AND CONTINUE TO MONITOR.
[2020-04-20] VITALS (11 sets, daily range): BP systolic 89–136; BP diastolic 45–86
--- NOTE | 2020-04-20 00:12 | NUR ---
COMPLETE BED BATH AND LINEN CHANGED. DRESSINGS REMOVED FROM WOUNDS CLEANSE WITH NS, DOCUMENTATION COMPLETED, AND DRY DRESSINGS APPLIED. PT TOLERATED WELL WITH CALM REASSURANCE AND QUEUING. REPOSITIONED IN BED WITH PILLOWS. ROD REMAINS PATENT DRAINING TO GRAVITY. TPN INFUSING TO RIGHT UPPER MIDLINE. AIR MATTRESS FUNCTIONING PROPERLY. CALL LIGHT WITHIN REACH. WILL CONTINUE TO MONITOR.
--- NOTE | 2020-04-20 03:14 | NUR ---
REPORT FROM ER THAT PT IN VTACH ON MONITOR. PT VERY RESTLESS. PT REMAINS ALERT AND CONFUSED. VS 94/64, 121, 30, 78%. NOT ABLE TO OBTAIN EKG DUE TO RESTLESSNESS. PT PLACED ON NON-REBREATHER @ 15L/M. ORDERS RECEIVED TO TRANSFER TO ICU. CALL PLACED TO ICU FOR BED PLACEMENT. PT TRANSFERED TO ICU BED 6. REPORT GIVEN TO [place] PEREZ.
--- NOTE | 2020-04-20 03:20 | NUR ---
[id number] rec'd per bed from [facility]. report rec'd per chris gar. pt very restless/anxious. pulling @ nrb. uncooperative with care. rt @ bedside. abgs drawn. bilat wrist restraints applied. cardiac rehabilitation specialist shows sinus tach freq bundle flips hr 120. turner cath in place-emptied. abg results rec'd. bipap started per rt. blood drawn & sent to lab.
[2020-04-20 04:09] LABS: HEMATOCRIT 33.8 % (37.0-47.0); HEMOGLOBIN 10.5 g/dl (12.0-16.0); MEAN CELL VOLUME 96.6 fL CALC (80.0-100.0); MEAN CORPUSCULAR HGB CONC 31.1 g/dL CAL (32.0-36.0); RED BLOOD COUNT 3.5 mill/uL (4.20-5.60); RED CELL DISTRI WIDTH 19.7 % (11.5-15.5)
[2020-04-20 04:24] LABS: ALBUMIN 1.9 g/dL (3.2-5.0); ALKALINE PHOSPHATASE 185 u/l (38-126); BILIRUBIN, TOTAL 0.5 mg/dL (0.0-1.4); BUN 27 mg/dL (8-23); BUN/CREATININE RATIO 35 (12-20 (CALC)); CARBON DIOXIDE 27 mmol/l (22-30); CHLORIDE 108 mmol/l (95-108); CREATININE 0.8 mg/dL (0.5-1.0); GFR > 60 ML/MIN (>=60 (CALC)); GFR FOR AFR.AMER. > 60 ML/MIN (>=60 (CALC)); SGOT/AST 157 u/l (9-36); SODIUM 135 mmol/l (137-146); TOTAL PROTEIN 5.6 g/dL (6.3-8.2)
[2020-04-20 04:26] LABS: ANION GAP 5 (6-22 (CALC)); POTASSIUM 5.3 mmol/l (3.5-5.1)
--- NOTE | 2020-04-20 04:30 | NUR ---
calm & quiet. no further restlessness. campus monitor shows sinus tach ivcd hr 118.
[2020-04-20 04:31] LABS: INTERNATIONAL NORMALIZED RATIO 1.2 RATIO (0.7-1.3); PROTHROMBIN TIME 11.5 SECONDS (9.0-12.5)
--- NOTE | 2020-04-20 06:00 | NUR ---
dr awad updated on pts condition. orders rec'd.
--- NOTE | 2020-04-20 06:28 | NUR ---
rt here. ekg obtained.
--- NOTE | 2020-04-20 06:50 | NUR ---
REPORT RECVD FROM CHRIS BARTHOLOMEW AT START OF SHIFT
--- NOTE | 2020-04-20 07:41 | NUR ---
@BEDSIDE FOR AM ASSESSMENT, PT VERY AGGITATED WHEN BEING TOUCHED. DOES NOT RESPOND TO QUESTIONS. PT ON BIPAP @50%. SOFT RESTRAINTS ON WRISTS. PT LAYING DIAGINAL IN BED. UNABLE TO FIX SHEETS D/T PT KICKING & THRASHING WHILE TRYING TO DO SO. MECHANICAL BP READING HYPOTENSIVE, WILL RECHECK MANUALLY.
--- NOTE | 2020-04-20 07:52 | NUR ---
UNABLE TO GET A GOOD READ ON MANUAL BP D/T PT CONSTANTLY MOVING AROUND, STATING I'M "HURTING HER". WILL ADVISE .
--- NOTE | 2020-04-20 08:30 | NUR ---
DICUSSED PT MOVING BACK TO ICU FROM [place] WITH DAUGHTER OVER THE PHONE. UPDATED DAUGHTER ON PTS STATUS. DAUGHTER IS ON HER WAY TO [facility] NOW.
--- NOTE | 2020-04-20 08:39 | NUR ---
MD @BEDSIDE WITH DAUGHTER DISCUSSING OPTIONS FOR POC: MAKE HER COMFORTABLE W/HOSPICE, CONTINUE THIS SAME TREATMENT, TRANSFER TO BIGGER HOSPITAL FOR MORE AGGRESSIVE DIAGNOSITICS AND TREATMENT. DAUGHTER STATES SHE WILL GO TALK TO DAD NOW TO GIVE HIM A SAY AND WILL NOTIFY US LATER OF THEIR DECISION.
--- NOTE | 2020-04-20 08:42 | NUR ---
TRIED AGAIN TO GET BP, PT THRASHING AROUND BED. UNABLE TO OBTAIN GOOD BP READING. UNABLE TO CHECK PT FOR CLEANLINESS/BM. UNABLE TO FIX PTS SHEETS.
--- NOTE | 2020-04-20 09:16 | NUR ---
DAUGHTER, MARYBETH, CALLED BACK TO INFORM THAT FAMILY WANTS PT TRANSFERED TO [facility]. PT REMAINS FULL CODE.
--- NOTE | 2020-04-20 09:23 | NUR ---
SPOKE WITH LUIS @[facility] TO INITIATE TRANSFER. FACESHEET FAXED TO [facility].
--- NOTE | 2020-04-20 09:47 | NUR ---
MEDICATIONS PULLED, CRUSHED, PLACED IN APPLESAUCE. PT REPOSITIONED UP IN BED. PT SHAKING HEAD, REFUSING MEDICATIONS. REFUSING BREAKFAST. REFUSING DRINKS.
--- NOTE | 2020-04-20 10:44 | NUR ---
@BEDSIDE WITH COLD ROLL CATCHER TO GET PT CLEANED UP; PT REFUSING, THRASHING WHOLE BODY AROUND ON BED. THIS RN UNABLE TO OBTAIN A GOOD MANUAL BP D/T PTS CONTINUED MOVEMENT. BARRIER CREAM APLIED BETWEEN THIGHS. RESTRAINTS IN PLACE. PT REMAINS ON BIPAP @50%
--- NOTE | 2020-04-20 11:13 | NUR ---
DAUGHTER CALLED TO UPDATE ON TRANSFER PROCESS. SOHEILA MANTILLA WAS 2ND CONSENT. DAUGHTER CONCERNED THAT PT WILL GET WEAK AGAIN WITHOUT PPN.
--- NOTE | 2020-04-20 11:55 | NUR ---
RBVO DR PELAEZ TO RESTART TPN. ORDER FAXED TO PHARMACY. HOUSE SUP AWARE.
--- NOTE | 2020-04-20 12:12 | NUR ---
phoned daughter eliza and updated her that patient would be restarted on tpn.
--- NOTE | 2020-04-20 12:28 | NUR ---
RT @BEDSIDE. UNABLE TO GET ABG D/T PT THRASHING IN BED.
--- NOTE | 2020-04-20 12:34 | NUR ---
PORTABLE CXR COMPLETE
--- NOTE | 2020-04-20 13:00 | NUR ---
OBTAINED AMINISTRATION APPROVAL FOR BIOFIRE/RAPID COVID-19 SWAB. SAMPLE COLLECTED.
--- NOTE | 2020-04-20 13:10 | NUR ---
BIPAP STANDBY. PT ON 5L NC
--- NOTE | 2020-04-20 13:13 | NUR ---
PER MD, RT REMOVED PT OFF BIPAP, PLACED ON 5L HUMIDIFIED NC. 92%
--- NOTE | 2020-04-20 13:38 | NUR ---
MANUAL BP & BP CUFF PLACED ON PTS RLE ARE SIMILAR. BP CUFF LEFT ON RIGHT LEG.
--- NOTE | 2020-04-20 14:15 | NUR ---
PT RESTING IN BED, ONLY AGIGATED WHEN STAFF TOUCHES PT INSTEAD OF WHEN STAFF WALKS INTO ROOM. VSS. O2 IS 92% ON HIGHFLOW. HOUSE SUP UPDATING DAUGHTER ON POC. WILL CONTINUE TO MONITOR.
--- NOTE | 2020-04-20 14:34 | NUR ---
phoned daughter reference tpn and elevated potassium and phosphorus. daughter is ok with holding off on tpn for now she would like labs reevaluated in am and re assess if tpn can be given a that time.
--- NOTE | 2020-04-20 15:26 | NUR ---
LUIS CALLED FOR [facility] ACCEPTANCE BY DR WLELER
--- NOTE | 2020-04-20 16:00 | NUR ---
PTS TOP DENTURES REMOVED AND PLACED IN BLUE DENTURE CUP WITH WATER & LABELED. PLACED NEAR WHITE DENTURE CUP FROM HOME. DENTURES HAVE BEEN HANGING 1/2 OUT ALL DAY. PT AGGRESSIVE WHEN THIS RN REMOVED THEM, TRYING TO BITE ME. PT SHAKING HEAD AROUND & GROANING/YELLING. PTS HR RAISES TO 120'S WITH "VTACH" WHEN APPROACHED.
--- NOTE | 2020-04-20 16:10 | NUR ---
[id number] ROOM ASSIGNED @[facility].
--- NOTE | 2020-04-20 16:14 | NUR ---
NELLIE @[facility]. ETA 30 MINS.
--- NOTE | 2020-04-20 16:45 | NUR ---
DAUGHTER MARYBETH UPDATED ON TRANSFER. BED NUMBER AND UNIT PHONE NUMBER GIVEN.
--- NOTE | 2020-04-20 17:05 | NUR ---
PT OUT THE DOOR WITH [facility] IN STABLE CONDITION WITH O2 & NS BOLUS. ALL BELONGINGS SENT WITH PT. REPORT GIVEN TO NATTY @[facility] [phone]
--- NOTE | 2020-04-20 17:35 | NUR ---
CALLED AIR MATTRESS TO BE RETURNED TO [facility] SPOKE TO LIANET AND WAS GIVEN CONFIRMATION NUMBER [phone].
== END 2020-04-20 17:05 | disposition short-term general hospital (02) | DRG 70 ==
LOC: ED 15:15 → ED-I 17:46 → ED 18:02 → ICU 18:03 → ED-I 18:03 → MS2 19:10 → ICU 04-12 23:16 → MS2 04-18 11:41 → ICU 04-20 03:20
PROVIDERS: Emergency Medicine; Internal Medicine; Nurse Practitioner Family; ADMIT Internal Medicine; ATTEND Internal Medicine
PROC: 0T9B70Z Drainage of Bladder with Drainage Device, Via Natural or Artificial Opening (ICD-10-PCS; principal; 2020-04-11)
PROC: 5A09357 Assistance with Respiratory Ventilation, Less than 24 Consecutive Hours, Continuous Positive Airway Pressure (ICD-10-PCS; 2020-04-20)
DX: G93.41 Metabolic encephalopathy (principal); J96.01 Acute respiratory failure with hypoxia; I47.2 Ventricular tachycardia; I49.3 Ventricular premature depolarization; R74.8 Abnormal levels of other serum enzymes; E88.09 Other disorders of plasma-protein metabolism, not elsewhere classified; I49.5 Sick sinus syndrome; I10 Essential (primary) hypertension; I25.10 Atherosclerotic heart disease of native coronary artery without angina pectoris; I48.0 Paroxysmal atrial fibrillation; I95.1 Orthostatic hypotension; E83.51 Hypocalcemia; R62.7 Adult failure to thrive; Z68.39 Body mass index [BMI] 39.0-39.9, adult; Z79.01 Long term (current) use of anticoagulants; Z20.828 Contact with and (suspected) exposure to other viral communicable diseases
CPT/HCPCS: J2060